=== PATIENT | female | born 1980 | race Caucasian/White ===

== ENCOUNTER 2016-09-02 10:19 | Inpatient (IN) | payer MEDICAID ==
[~2016-09-02] VITALS: Ht 142.2 cm; Wt 54.9 kg
[2016-09-02 10:22] VITALS: BP 116/55
--- NOTE | 2016-09-02 10:26 | NUR ---
[facility] in [facility] - 09/02/16 at 1029 by [email or web address] PT TAKEN TO BED 7
--- NOTE | 2016-09-02 10:28 | NUR ---
PT TO BED 7
--- NOTE | 2016-09-02 10:35 | NUR ---
PATIENT PRESENTS TO ED WITH VAGINAL BLEEDING X 1 DAYS, WITH SPOTTING 7 DAYS AGO. PT STATES SHE IS 8 WEEKS . DENIES N/V/D; SKIN IS PINK/WARM/DRY; AAOX4 WITH EVEN AND STEADY GAIT; LUNGS CLEAR BL; HR EVEN AND REGULAR; PT DENIES ANY FEVER, CP, SOB, OR COUGH AT THIS TIME; PATIENT STATES PAIN OF 0/10 AT THIS TIME; VSS; PATIENT POSITIONED FOR COMFORT; HOB ELEVATED; BEDRAILS UP X2; BED DOWN. ER MD MADE AWARE OF PT STATUS.
[2016-09-02] MEDS ORDERED: KEFLEX250 MG PO ×2 (10:55)
--- NOTE | 2016-09-02 11:08 | NUR ---
DR. SINHA PRESENT AT BEDSIDE.
[2016-09-02] MEDS ORDERED: NACL 0.9% 1,000 ML IV SCH (11:13)
[2016-09-02] MEDS ORDERED: ONDANSETRON 4 MG/2 ML VIAL IVP ONE (11:15)
--- NOTE | 2016-09-02 11:30 | NUR ---
DR. SINHA PRESENT AT BEDSIDE FOR PELVIC EXAM. PT TOLERATED WELL.
--- NOTE | 2016-09-02 11:48 | NUR ---
PT TAKEN TO US
--- NOTE | 2016-09-02 12:32 | NUR ---
PT BACK FROM ULTRASOUND
--- NOTE | 2016-09-02 14:35 | NUR ---
CHECKED ON PT. RESTING AT THIS TIME, AROUSABLE. ALL VSS. WILL CONTINUE TO MONITOR.
--- NOTE | 2016-09-02 14:52 | NUR ---
PT'S MOTHER PRESENT AT BEDSIDE.
--- NOTE | 2016-09-02 15:15 | NUR ---
DR. SINHA PRESENT AT BEDSIDE NOTIFYING PT OF CURRENT PLAN OF CARE.
[2016-09-02] MEDS ORDERED: FOLIC ACID 1 MG TAB PO SCH ×2 (15:30→15:44)
[2016-09-02] MEDS ORDERED: ONDANSETRON 4 MG/2 ML VIAL IVP PRN (15:30)
[2016-09-02] MEDS ORDERED: AZITHROMYCIN 1,000 MG in DEXTROSE 5% 500 ML IV SCH (15:35)
[2016-09-02] MEDS ORDERED: MULTIVIT/MIN/CA/FE/FA 1 TAB PO SCH (15:37)
--- NOTE | 2016-09-02 16:02 | NUR ---
HANDOFF REPORT GIVEN TO JESSA TEJEDA. ALL QUESTIONS ANSWERED. PT TO BE TRANSFERRED TO TELEMETRY RM [id number]
[2016-09-02 16:10] VITALS: BP 117/65
--- NOTE | 2016-09-02 16:10 | NUR ---
RECEIVED REPORT FROM CRIME SPECIALIST. PT IS AWAKE, A/O X 4, AMBULATORY, PRIMARILY NEPALI SPEAKING. NO S/S OF ACUTE CARDIAC/RESPIRATORY DISTRESS OR DISCOMFORT. NO VAGINAL BLEEDING AT THIS TIME. LAC 20G IV INTACT AND PATENT. SAFETY MEASURES IN PLACE, CALL LIGHT WITHIN REACH. WILL INITIATE PLAN OF CARE AND CONTINUE TO MONITOR.
[2016-09-02] MEDS ORDERED: ACETAMINOPHEN 325 MG TAB PO PRN (17:20)
[2016-09-02] MEDS: NACL 0.9% 1,000 ML IV SCH (17:34)
--- NOTE | 2016-09-02 19:25 | NUR ---
RECEIVED REPORT FROM JESSA TEJEDA AT BEDSIDE. INITIAL ASSESSMENT COMPLETED. PT AAOX4. PT DENIES PAIN OR DISCOMFORT AT THIS TIME. PT AMBULATES. PT HAS IV TO LEFT AC G 20; ASYMPTOMATIC, PATENT AND INTACT INFUSING FLUIDS WELL. PT'S SKIN IS INTACT. EXPLAINED PLAN OF CARE TO PT AND SHE VERBALIZES UNDERSTANDING. ORIENTED PT TO ROOM AND SURROUNDINGS AND USE OF CALL LIGHT. PT VERBALIZES UNDERSTANDING. FAMILY VISITING AT BEDSIDE, WILL CONTINUE TO MONITOR PT.
[2016-09-02 20:00] VITALS: BP 118/69
--- NOTE | 2016-09-02 21:46 | NUR ---
PT SLEEPING AT THIS TIME, NO SIGNS OF DISTRESS OR DISCOMFORT NOTED. WILL CONTINUE TO MONITOR PT.
--- NOTE | 2016-09-02 23:05 | NUR ---
PT REQUESTED HELP TO DISCONNECT IV TO AMBULATE TO THE RESTROOM. PT BACK IN BED, STABLE, WILL CONTINUE TO MONITOR PT.
[2016-09-03] VITALS: BP 100/57
--- NOTE | 2016-09-03 01:20 | NUR ---
IV PUMP ALARMING, IV FLUSHED AND INFUSING FLUIDS WELL.
[2016-09-03] MEDS: NACL 0.9% 1,000 ML IV SCH ×2 (01:30→06:05)
--- NOTE | 2016-09-03 03:15 | NUR ---
PT STATES THAT SHE MISSES HER KIDS AT HOME. PT STATES THAT SHE FEELS BETTER EMOTIONALLY THAN SHE DID YESTERDAY.
[2016-09-03 04:00] VITALS: BP 103/61
--- NOTE | 2016-09-03 06:05 | NUR ---
PT AMBULATED TO THE RESTROOM; PT STABLE, WILL CONTINUE TO MONITOR PT.
--- NOTE | 2016-09-03 07:10 | NUR ---
ENDORSED PT IN STABLE CONDITION TO RN ILEANA FOR CONTINUITY OF CARE.
--- NOTE | 2016-09-03 07:15 | NUR ---
RECEIVED REPORT FROM ECONOMICS LECTURER RN. PT IS SLEEPING. NO S/S OF ACUTE CARDIAC/RESPIRATORY DISTRESS OR DISCOMFORT. SAFETY MEASURES IN PLACE, CALL LIGHT WITHIN REACH. WILL CONTINUE PLAN OF CARE AND CONTINUE TO MONITOR.
[2016-09-03 08:00] VITALS: BP 100/66
[2016-09-03] MEDS ORDERED: MULTIVIT/MIN/CA/FE/FA 1 TAB PO SCH (09:00)
[2016-09-03] MEDS ORDERED: FOLIC ACID 1 MG TAB PO SCH (09:00)
--- NOTE | 2016-09-03 10:23 | NUR ---
PT IS RESTING. NO S/S OF ACUTE DISTRESS OR DISCOMFORT. CALL LIGHT WITHIN REACH. WILL CONTINUE TO MONITOR.
[2016-09-03 12:00] VITALS: BP 103/66
--- NOTE | 2016-09-03 12:38 | NUR ---
DISCHARGE INSTRUCTIONS PROVIDED, PT VERBALIZED UNDERSTANDING. DISCHARGE PAPERWORK SIGNED, PROVIDED A COPY. ARM BANDS REMOVED, IV REMOVED AND INTACT. TELE MONITOR RETURNED TO NURSING STATION. PT HAS NO S/S OF ACUTE DISTRESS OR DISCOMFORT. PT IN STABLE CONDITION. AWAITING PT'S FOR ADVICE LINE RN.
--- NOTE | 2016-09-03 12:56 | NUR ---
WHEELCHAIRED PT TO FRONT LOBBY TO BE PICKED UP BY .
== END 2016-09-03 12:57 | disposition home or self-care (01) | DRG 560 ==
LOC: MED 10:19 → MTU 15:14
PROVIDERS: ADMIT Family Medicine; ATTEND Family Medicine
DX: O20.0 Threatened abortion (principal); Z37.4 Twins, both stillborn; N17.0 Acute kidney failure with tubular necrosis; O26.831 Pregnancy related renal disease, first trimester; O23.41 Unspecified infection of urinary tract in pregnancy, first trimester; Z3A.01 Less than 8 weeks gestation of pregnancy

== ENCOUNTER 2016-09-04 12:03 | Emergency (ER) | payer MEDICAID ==
[~2016-09-04] VITALS: Ht 142.2 cm; Wt 55.3 kg
[~2016-09-04 12:03] MED LIST: KEFLEX250 MG PO
[2016-09-04 12:20] VITALS: BP 85/63
--- NOTE | 2016-09-04 12:24 | NUR ---
Patient ambulated to bed 08.
--- NOTE | 2016-09-04 12:42 | NUR ---
Dr. Kay evaluating patient at bedside.
--- NOTE | 2016-09-04 12:48 | NUR ---
PATIENT PRESENTS TO ED TO RECHECK PROGRESS OF PER PT SHE IS 5 WEEKS , PER PT SHE WAS ADMITTED IN THE HOSPITAL LAST SUNDAY DUE TO BLEEDING . PT STATES I HAVE NO PAIN AT THIS TIME, I SAVE A CLOT THAT CAME OUT OF ME YESTERDAY . DENIES N/V/D; SKIN IS PINK/WARM/DRY; AAOX4 WITH EVEN AND STEADY GAIT; LUNGS CLEAR BL; HR EVEN AND REGULAR; PT DENIES ANY FEVER, CP, SOB, OR COUGH AT THIS TIME; PATIENT STATES PAIN OF 0/10 AT THIS TIME; PATIENT POSITIONED FOR COMFORT; HOB ELEVATED; BEDRAILS UP X2; BED DOWN.US AT BEDSIDE AT THIS TIME
--- NOTE | 2016-09-04 12:54 | NUR ---
PER PT SHE IS
--- NOTE | 2016-09-04 13:24 | NUR ---
US AT BEDSIDE
[2016-09-04] MEDS ORDERED: METHYLERGONOVINE 0.2 MG/ML AMP IM ONE (14:30)
--- NOTE | 2016-09-04 14:36 | NUR ---
PT ASKED FOR FOOD ASKED MD IF PT CAN EAT, PER MD OK TO EAT, CRACKERS AND APPLE JUICE GIVEN
--- NOTE | 2016-09-04 15:33 | NUR ---
CD of Ultrasound was given to patient. Authorization for disclosure signed.
[2016-09-04 15:35] VITALS: BP 113/64
--- NOTE | 2016-09-04 15:36 | NUR ---
Patient discharged with v/s stable. Written and verbal after care instructions given and explained. Patient verbalized understanding. Ambulatory with steady gait. All questions addressed prior to discharge. Advised to follow up with PMD. COPY OF US GIVEN, AND ADDRESS OF DR. IRMA GRAYSON GIVEN
== END 2016-09-04 15:36 | disposition home or self-care (01) ==
LOC: MED 12:03
DX: O03.9 Complete or unspecified spontaneous abortion without complication (principal); Z3A.12 12 weeks gestation of pregnancy
CPT/HCPCS: 36415; 76802; 76817; 84702; 96372; 99285; J2210

== ENCOUNTER 2018-06-03 18:39 | Emergency (ER) | payer SELFPAY ==
--- NOTE | 2018-06-03 18:53 | NUR ---
PATIENT LEFT BEFORE TRIAGE. NO FURTHER CARE PROVIDED FOR PATIENT.
== END 2018-06-03 18:53 | disposition left against medical advice (07) ==
LOC: MED 18:39
DX: Z53.21 Procedure and treatment not carried out due to patient leaving prior to being seen by health care provider (principal)